=== PATIENT | male | born 1930 | race Caucasian/White ===

== ENCOUNTER 2016-11-07 06:01 | Emergency (ER) | payer MEDICARE, BC ==
[~2016-11-07 06:01] MED LIST: COZAAR50 MG PO; FLOMAX0.4 MG PO; LAMOTRIGINE100 MG PO; LORAZEPAM0.5 MG PO; LOW DOSE ASPIRI81 MG PO; NEURONTIN100 MG PO; NORVASC 10MG10 MG PO; REQUIP0.25 MG PO; XANAX 0.5MG0.5 MG PO
[2016-11-07 08:47] VITALS: BP 137/74
== END 2016-11-07 08:45 | disposition home or self-care (01) ==
LOC: ED 06:01
DX: R53.1 Weakness (principal); M25.561 Pain in right knee; M25.562 Pain in left knee; R00.1 Bradycardia, unspecified; Z95.0 Presence of cardiac pacemaker; I45.19 Other right bundle-branch block; Z79.82 Long term (current) use of aspirin

== ENCOUNTER 2017-08-12 13:00 | Outpatient (RCR) | payer MEDICARE, BC | END 2017-08-12 13:30 | disposition home or self-care (01) | LOC: PT 13:00 | DX: M79.605 Pain in left leg (principal) | CPT/HCPCS: G8978-GP; G8979-GP ==

== ENCOUNTER → 2018-01-06 | Outpatient (CLI) | payer MEDICARE, BC ==
[2018-01-06 10:22] LABS: HEMATOCRIT 46.9 % (42.0-52.0); HEMOGLOBIN 15.1 g/dL (13.5-18.0); MEAN PLATELET VOLUME 9.8 fl (7.4-10.4); RED BLOOD COUNT 4.84 M/mm3 (4.20-5.60); RED CELL DISTRIBUTION WIDTH 12.8 % (11.5-14.5); WHITE BLOOD COUNT 9.6 K/mm3 (4.8-10.8)
[2018-01-06 10:34] LABS: BUN/CREATININE RATIO 18.3 (6.0-26.0); CALCIUM 9.7 mg/dL (8.4-10.2); POTASSIUM 4.6 mmol/L (3.6-5.0)
== END ==
LOC: LAB 09:38
DX: Z01.812 Encounter for preprocedural laboratory examination (principal); M79.672 Pain in left foot; M25.775 Osteophyte, left foot

== ENCOUNTER → 2019-07-29 | Outpatient (CLI) | payer MEDICARE, BC | LOC: RAD 08:30 | DX: M25.561 Pain in right knee (principal); M25.562 Pain in left knee; Z96.653 Presence of artificial knee joint, bilateral ==

== ENCOUNTER 2020-10-17 12:58 | Emergency (ER) | payer MEDICARE ==
[2020-10-17 13:29] LABS: HEMATOCRIT 41.9 % (42.0-52.0); MEAN CELL VOLUME 99 fl (78-100); MEAN CORPUSCULAR HEMOGLOBIN 31 pg (27-31); MEAN CORPUSCULAR HGB CONC 31 g/dL (33-37); MEAN PLATELET VOLUME 11.3 fl (7.4-10.4); PLATELET COUNT 190 K/mm3 (130-400); RED BLOOD COUNT 4.23 M/mm3 (4.20-5.60); RED CELL DISTRIBUTION WIDTH 12.9 % (11.5-14.5); WHITE BLOOD COUNT 14.9 K/mm3 (4.8-10.8)
[2020-10-17 13:41] LABS: ALBUMIN 3.7 g/dL (3.4-4.8); POTASSIUM 4.5 mmol/L (3.5-5.1)
[2020-10-17 13:42] LABS: BAND 1 % (0-10); CALCIUM 9.8 mg/dL (8.3-10.5); LYMPHOCYTE 8 % (20-51); MONOCYTE 15 % (3-10); NEUTROPHILS 74 % (42-75)
[2020-10-17 13:43] LABS: TOTAL PROTEIN 6.7 g/dL (6.2-8.1)
[2020-10-17 13:45] LABS: TOTAL BILIRUBIN 1.6 mg/dL (0.2-1.2)
[2020-10-17 16:31] LABS: URINE APPEARANCE CLOUDY; URINE BILIRUBIN NEGATIVE (NEGATIVE); URINE BLOOD TRACE (NEGATIVE); URINE COLOR YELLOW; URINE GLUCOSE NEGATIVE (NEGATIVE); URINE KETONE NEGATIVE (NEGATIVE); URINE LEUKOCYTE ESTERASE TRACE (NEGATIVE); URINE MUCUS PRESENT (NOT PRESENT); URINE NITRATE NEGATIVE (NEGATIVE); URINE PROTEIN(semi-quant) 1+ mg/dL (NEGATIVE); URINE UROBILINOGEN NORMAL (NORMAL)
[2020-10-17 17:10] LABS: D-DIMER 1.73 mg/L FEU (0.15-0.50)
[2020-10-17 17:57] LABS: TROPONIN-I 45.91 ng/mL (<0.030)
[2020-10-17] MEDS ORDERED: LOPRESSOR 225 MG/TAB PO (18:17)
[2020-10-17] MEDS ORDERED: NEURONTIN300 MG/CAP (18:17)
[2020-10-17 18:49] VITALS: BP 112/68
== END 2020-10-17 18:50 | disposition short-term general hospital (02) ==
LOC: ED 12:58
PROVIDERS: Physician Assistant
DX: I21.3 ST elevation (STEMI) myocardial infarction of unspecified site (principal); N39.0 Urinary tract infection, site not specified; I10 Essential (primary) hypertension; Z20.828 Contact with and (suspected) exposure to other viral communicable diseases; Z23 Encounter for immunization; Z95.1 Presence of aortocoronary bypass graft; Z79.82 Long term (current) use of aspirin
CPT/HCPCS: A4340; J0696; J1650; J7030